=== PATIENT | male | born 1990 | race African-American/Black ===

== ENCOUNTER 2018-12-13 22:21 | Inpatient (IN) | payer MEDICARE, MEDICAID ==
[~2018-12-13] VITALS: Ht 180.3 cm; Wt 82.1 kg
[2018-12-14 00:40] VITALS: BP 109/51
--- NOTE | 2018-12-14 01:00 | NUR ---
NURSE NOTES: Received patient from [facility] via [facility] ([address], pharmaceutical detailer: Alon Miranda and Tae Todd) at 0015. Received report from MATHEW Cespedes at [place] [facility]. Patient A&Ox4. On room air, no signs of distress or labored breathing. IV intact, patent, and saline locked. Girlfriend at bedside. Belongings checked and recorded. Bed in lowest position with call light in reach. Will contact MD for orders and implement.
[2018-12-14] MEDS ORDERED: HYDROcodone/Acetamin 5/325 tab ORAL PRN (02:30)
[2018-12-14] MEDS ORDERED: Potassium Chloride 10 MEQ in D5 1/2NS 1,000 ML IV SCH (02:45)
[2018-12-14] MEDS: D5 1/2NS 1,000 ML IV SCH ×2 (03:35→16:50)
[2018-12-14] MEDS: Morphine Sulfate 2mg/ml Inj(IV/IM USE ONLY) IVP PRN ×4 (03:36→16:20)
[2018-12-14 04:00] VITALS: BP 110/60
[2018-12-14] MEDS: cefTRIAXone 1 GM in D5W 55 ML IVPB SCH (04:29)
[2018-12-14] MEDS ORDERED: GABAPENTIN600 MG ORAL (06:16)
[2018-12-14] MEDS ORDERED: BACLOFEN10 MG ORAL (06:16)
--- NOTE | 2018-12-14 07:18 | NUR ---
HAND-OFF: Report given to SIDRA RUIZ RN.
[2018-12-14 07:19] LABS: BASOPHILS % (AUTO) 0.8 % (0.0-2.0); EOSINOPHILS % (AUTO) 4.2 % (0.0-3.0); HEMATOCRIT 36.3 % (42.0-52.0); HEMOGLOBIN 12.4 G/DL (14.2-18.0); LYMPHOCYTES % (AUTO) 33.3 % (20.0-45.0); MEAN CORPUSCULAR VOLUME 92 FL (80-99); MONOCYTES % (AUTO) 11.7 % (1.0-10.0); PLATELET COUNT 143 K/UL (150-450); RED BLOOD COUNT 3.94 M/UL (4.70-6.10); RED CELL DISTRIBUTION WIDTH 11.3 % (11.6-14.8); WHITE BLOOD COUNT 5.8 K/UL (4.8-10.8)
[2018-12-14 08:00] VITALS: BP 100/44
[2018-12-14 08:11] LABS: ALANINE AMINOTRANSFERASE 21 U/L (12-78); ALBUMIN 3.2 G/DL (3.4-5.0); ALBUMIN/GLOBULIN RATIO 0.8 (1.0-2.7); ALKALINE PHOSPHATASE 58 U/L (46-116); ANION GAP 7 mmol/L (5-15); ASPARTATE AMINO TRANSFERASE 13 U/L (15-37); BILIRUBIN,TOTAL 0.2 MG/DL (0.2-1.0); BLOOD UREA NITROGEN 12 mg/dL (7-18); CALCIUM 8.1 MG/DL (8.5-10.1); CARBON DIOXIDE 28 MMOL/L (21-32); CHLORIDE 107 MMOL/L (98-107); CREATININE 0.8 MG/DL (0.55-1.30); PHOSPHORUS 3.3 MG/DL (2.5-4.9); POTASSIUM 3.8 MMOL/L (3.5-5.1); SODIUM 142 MMOL/L (136-145)
--- NOTE | 2018-12-14 09:30 | Consultation ---
History of Present Illness General Date patient seen: Dec 14, 2018 Present Illness HPI 28 year old male with PMHx of hip surgery and sciatica was taken by paramedics to [facility] with CC of swelling and redness of left eyes. A CT of head was done which was negative for any retro-orbital abscess. Pt is transferred for further evaluation Allergies: Coded Allergies: SULFA (SULFONAMIDE ANTIBIOTICS) (Verified Allergy, Unknown, 12/14/18) Medication History Scheduled Baclofen* (Baclofen*), 10 MG ORAL BID, (Reported) Gabapentin* (Gabapentin*), 600 MG ORAL BID, (Reported) Patient History Healthcare decision maker self Resuscitation status Full Code Advanced Directive on File Past Medical/Surgical History Past Medical/Surgical History: (1) Sciatica Review of Systems All Other Systems: negative except mentioned in HPI Physical Exam General Appearance: WD/WN Lines, tubes and drains: peripheral HEENT: normocephalic Neck: non-tender, normal alignment Respiratory/Chest: chest wall non-tender, lungs clear Cardiovascular/Chest: normal peripheral pulses, normal rate Abdomen: normal bowel sounds Last 24 Hour Vital Signs Date Time Temp Pulse Resp B/P (MAP) Pulse Ox O2 Delivery O2 Flow Rate FiO2 12/14/18 08:00 97.4 55 18 100/44 (62) 99 12/14/18 04:00 97.7 63 18 110/60 (77) 98 12/14/18 02:32 Room Air 12/14/18 00:40 97.2 54 18 109/51 (70) 100 Intake and Output 12/13/18 12/14/18 19:00 07:00 Output Total 300 ml Balance -300 ml Output Urine Total 300 ml # Voids 1 Laboratory Tests Test 12/14/18 05:45 White Blood Count 5.8 K/UL (4.8-10.8) Red Blood Count 3.94 M/UL (4.70-6.10) L Hemoglobin 12.4 G/DL (14.2-18.0) L Hematocrit 36.3 % (42.0-52.0) L Mean Corpuscular Volume 92 FL (80-99) Mean Corpuscular Hemoglobin 31.3 PG (27.0-31.0) H Mean Corpuscular Hemoglobin Concent 34.1 G/DL (32.0-36.0) Red Cell Distribution Width 11.3 % (11.6-14.8) L Platelet Count 143 K/UL (150-450) L Mean Platelet Volume 7.5 FL (6.5-10.1) Neutrophils (%) (Auto) 50.0 % (45.0-75.0) Lymphocytes (%) (Auto) 33.3 % (20.0-45.0) Monocytes (%) (Auto) 11.7 % (1.0-10.0) H Eosinophils (%) (Auto) 4.2 % (0.0-3.0) H Basophils (%) (Auto) 0.8 % (0.0-2.0) Sodium Level 142 MMOL/L (136-145) Potassium Level 3.8 MMOL/L (3.5-5.1) Chloride Level 107 MMOL/L (98-107) Carbon Dioxide Level 28 MMOL/L (21-32) Anion Gap 7 mmol/L (5-15) Blood Urea Nitrogen 12 mg/dL (7-18) Creatinine 0.8 MG/DL (0.55-1.30) Estimat Glomerular Filtration Rate > 60 mL/min (>60) Glucose Level 104 MG/DL (74-106) Calcium Level 8.1 MG/DL (8.5-10.1) L Phosphorus Level 3.3 MG/DL (2.5-4.9) Magnesium Level 2.0 MG/DL (1.8-2.4) Total Bilirubin 0.2 MG/DL (0.2-1.0) Aspartate Amino Transf (AST/SGOT) 13 U/L (15-37) L Alanine Aminotransferase (ALT/SGPT) 21 U/L (12-78) Alkaline Phosphatase 58 U/L (46-116) Total Protein 7.1 G/DL (6.4-8.2) Albumin 3.2 G/DL (3.4-5.0) L Globulin 3.9 g/dL Albumin/Globulin Ratio 0.8 (1.0-2.7) L Height (Feet): 5 Height (Inches): 11.00 Weight (Pounds): 181 Medications Current Medications Medications (Trade) Dose Ordered Sig/Delroy Route PRN Reason Start Time Stop Time Status Last Admin Dose Admin Acetaminophen (Tylenol) 650 mg Q6H PRN ORAL Mild Pain/Temp > 100.5 8/10/19 02:30 01/13/19 02:29 Acetaminophen/ Hydrocodone Bitart ([place] 5/325) 1 tab Q6H PRN ORAL Moderate Pain (Pain Scale 4-6) 12/14/18 02:30 12/21/18 02:29 Baclofen (Lioresal) 10 mg BID ORAL 12/14/18 09:00 01/13/19 08:59 Ceftriaxone Sodium 1 gm/ Dextrose 55 ml @ 110 mls/hr Q24H IVPB 12/14/18 04:00 12/21/18 03:59 12/14/18 04:29 Dextrose/Sodium Chloride 1,000 ml @ 75 mls/hr [id number] IV 12/14/18 03:30 01/13/19 03:29 12/14/18 03:35 Gabapentin (Neurontin) 600 mg BID ORAL 12/14/18 09:00 01/13/19 08:59 Morphine Sulfate (Morphine Sulfate) 2 mg Q4H PRN IVP Severe Pain (Pain Scale 7-10) 12/14/18 02:30 12/21/18 02:29 12/14/18 07:38 Ondansetron HCl (Zofran) 4 mg Q4H PRN IVP Nausea & Vomiting 12/14/18 02:30 01/13/19 02:29 12/14/18 07:58 Assessment/Plan Problem List: (1) Orbital cellulitis ICD Codes: H05.019 - Cellulitis of unspecified orbit SNOMED: [id number] Assessment/Plan: iv abx iv fluids ID consult check [email or web address], esr Felton Iniguez MD Dec 14, 2018 09:30
--- NOTE | 2018-12-14 11:43 | Consultation ---
History of Present Illness General Date patient seen: Dec 14, 2018 Present Illness HPI 28 y/o M with hx of hip surgery and sciatica is transferred from [facility] [place] [facility] [place] with swelling and redness of left eye. CT head negative for retro- orbital abscess. Allergies: Coded Allergies: SULFA (SULFONAMIDE ANTIBIOTICS) (Verified Allergy, Unknown, 12/14/18) Medication History Scheduled Baclofen* (Baclofen*), 10 MG ORAL BID, (Reported) Gabapentin* (Gabapentin*), 600 MG ORAL BID, (Reported) Patient History Healthcare decision maker self Resuscitation status Full Code Advanced Directive on File Patient History Narrative Pmhx: as above Shx: reviewed Fhx: non contributory Review of Systems All Other Systems: negative except mentioned in HPI Physical Exam Physical Exam Narrative General Appearance: WD/WN Lines, tubes and drains: peripheral HEENT: normocephalic Neck: non-tender, normal alignment Respiratory/Chest: chest wall non-tender, lungs clear Cardiovascular/Chest: normal peripheral pulses, normal rate Abdomen: normal bowel sounds Last 24 Hour Vital Signs Date Time Temp Pulse Resp B/P (MAP) Pulse Ox O2 Delivery O2 Flow Rate FiO2 12/14/18 09:00 Room Air 12/14/18 08:00 97.4 55 18 100/44 (62) 99 12/14/18 04:00 97.7 63 18 110/60 (77) 98 12/14/18 02:32 Room Air 12/14/18 00:40 97.2 54 18 109/51 (70) 100 Intake and Output 12/13/18 12/14/18 18:59 06:59 Output Total 300 ml Balance -300 ml Output Urine Total 300 ml # Voids 1 Laboratory Tests Test 12/14/18 05:45 White Blood Count 5.8 K/UL (4.8-10.8) Red Blood Count 3.94 M/UL (4.70-6.10) L Hemoglobin 12.4 G/DL (14.2-18.0) L Hematocrit 36.3 % (42.0-52.0) L Mean Corpuscular Volume 92 FL (80-99) Mean Corpuscular Hemoglobin 31.3 PG (27.0-31.0) H Mean Corpuscular Hemoglobin Concent 34.1 G/DL (32.0-36.0) Red Cell Distribution Width 11.3 % (11.6-14.8) L Platelet Count 143 K/UL (150-450) L Mean Platelet Volume 7.5 FL (6.5-10.1) Neutrophils (%) (Auto) 50.0 % (45.0-75.0) Lymphocytes (%) (Auto) 33.3 % (20.0-45.0) Monocytes (%) (Auto) 11.7 % (1.0-10.0) H Eosinophils (%) (Auto) 4.2 % (0.0-3.0) H Basophils (%) (Auto) 0.8 % (0.0-2.0) Sodium Level 142 MMOL/L (136-145) Potassium Level 3.8 MMOL/L (3.5-5.1) Chloride Level 107 MMOL/L (98-107) Carbon Dioxide Level 28 MMOL/L (21-32) Anion Gap 7 mmol/L (5-15) Blood Urea Nitrogen 12 mg/dL (7-18) Creatinine 0.8 MG/DL (0.55-1.30) Estimat Glomerular Filtration Rate > 60 mL/min (>60) Glucose Level 104 MG/DL (74-106) Calcium Level 8.1 MG/DL (8.5-10.1) L Phosphorus Level 3.3 MG/DL (2.5-4.9) Magnesium Level 2.0 MG/DL (1.8-2.4) Total Bilirubin 0.2 MG/DL (0.2-1.0) Aspartate Amino Transf (AST/SGOT) 13 U/L (15-37) L Alanine Aminotransferase (ALT/SGPT) 21 U/L (12-78) Alkaline Phosphatase 58 U/L (46-116) Total Protein 7.1 G/DL (6.4-8.2) Albumin 3.2 G/DL (3.4-5.0) L Globulin 3.9 g/dL Albumin/Globulin Ratio 0.8 (1.0-2.7) L Height (Feet): 5 Height (Inches): 11.00 Weight (Pounds): 181 Medications Current Medications Medications (Trade) Dose Ordered Sig/Delroy Route PRN Reason Start Time Stop Time Status Last Admin Dose Admin Acetaminophen (Tylenol) 650 mg Q6H PRN ORAL Mild Pain/Temp > 100.5 12/14/18 02:30 01/13/19 02:29 Acetaminophen/ Hydrocodone Bitart ([place] 5/325) 1 tab Q6H PRN ORAL Moderate Pain (Pain Scale 4-6) 12/14/18 02:30 12/21/18 02:29 Baclofen (Lioresal) 10 mg BID ORAL 12/14/18 09:00 01/13/19 08:59 12/14/18 09:23 Ceftriaxone Sodium 1 gm/ Dextrose 55 ml @ 110 mls/hr Q24H IVPB 12/14/18 04:00 12/21/18 03:59 12/14/18 04:29 Dextrose/Sodium Chloride 1,000 ml @ 75 mls/hr [id number] IV 12/14/18 03:30 01/13/19 03:29 12/14/18 03:35 Gabapentin (Neurontin) 600 mg BID ORAL 12/14/18 09:00 01/13/19 08:59 12/14/18 09:23 Morphine Sulfate (Morphine Sulfate) 2 mg Q4H PRN IVP Severe Pain (Pain Scale 7-10) 12/14/18 02:30 12/21/18 02:29 12/14/18 07:38 Ondansetron HCl (Zofran) 4 mg Q4H PRN IVP Nausea & Vomiting 12/14/18 02:30 01/13/19 02:29 12/14/18 07:58 Vancomycin HCl (Vanco rx to dose) 1 ea DAILY PRN MISC Per rx protocol 12/14/18 09:30 01/13/19 09:29 Vancomycin HCl/ Dextrose 275 ml @ 137.5 mls/ hr Q12HR@1100,2300 IVPB 12/14/18 11:00 12/19/18 10:59 Assessment/Plan Assessment/Plan: Abx: IV Vancomycin 12/14- Ceftriaxone 12/14- Assessment: L eye redness and swelling- likely lacrimal duct abscess w/ obstruction- will need ophthalmology evaluation Afebrile No leukocytosis Plan: -Continue empiric IV Vancomycin and Ceftriaxone #1 -may discharge tomorrow on PO Doxycycline 100mg bid and Augmentin 875/125mg PO Bid for 10 days if improvement and patient to be seen at his eye clinic on Sunday which he has seen in previous days. -f/u cx -Monitor CBC/CMP, temperatures -wound cx obtained Thank you for this consultation. Will continue to follow along with you. Discussed with RN, Dr Ibrahim and Beatriz Castaneda M.D. Dec 14, 2018 11:43
[2018-12-14 12:00] VITALS: BP 116/62
[2018-12-14] MEDS: Vancomycin 1.5gm Premix IVPB SCH ×2 (12:04→23:16)
--- NOTE | 2018-12-14 13:34 | NUR ---
NURSE NOTES: RN LEFT MESSAGE WITH DR CATHERINE REGARDING PT'S BRADYCARDIA. PULSE RANGE 41-65. PT DENIES SHORTNESS OF BREATH, BUT STATES HE FEELS WEAK. PT IS AXOX4, RESPONDS TO RN APPROPRIATELY. NOT LETHARGIC. CRN MADE AWARE. EDUCATED ON FALL/SAFETY PRECAUTIONS. CALL LIGHT WITHIN REACH.
[2018-12-14] MEDS ORDERED: Tubing IV Secondary IV ONE (14:57)
[2018-12-14] MEDS ORDERED: D5 1/2NS 1000ml IV ONE (14:57)
[2018-12-14 16:00] VITALS: BP 114/61
--- NOTE | 2018-12-14 18:23 | History & Physical ---
History and Physical History & Physicial Dictated for Int Med-Dr Ibrahim no. [id number] Travis De Luna MD Dec 14, 2018 18:23
[2018-12-14] MEDS ORDERED: Morphine Sulfate 2mg/ml Inj(IV/IM USE ONLY) IVP PRN (18:30)
--- NOTE | 2018-12-14 18:30 | NUR ---
NURSE NOTES: DR BURRELL WAS AT BEDSIDE AND MADE AWARE OF PT COMPLAINTS OF INCREASING PRESSURE/PAIN OF LEFT ORBITAL REGION. PER DR BURRELL, HE CALLED CONSULT FOR SENIOR POLICY ADVISOR DR FITCH.
--- NOTE | 2018-12-14 19:34 | NUR ---
HAND-OFF: Report given to Winter PUENTES RN.
--- NOTE | 2018-12-14 19:40 | NUR ---
NURSE NOTES: Received report from Jah Jean RN. Patient A&Ox4 on room air, no signs of distress or labored breathing. IV intact, patent, and running IV fluids. Patient complaining of pain. Bed in lowest position with call light in reach. Will continue with plan of care.
[2018-12-14 20:00] VITALS: BP 117/61
[2018-12-14] MEDS: Morphine Sulfate 4mg/ml Inj (IV USE ONLY) IVP PRN ×2 (20:36→23:59)
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
[2018-12-14] MEDS: Tobradex Opth Oint 3.5gm LEFT EYE SCH (23:02)
[2018-12-14] MEDS: Tobradex Opth Susp 2.5ml LEFT EYE SCH (23:02)
[2018-12-15] VITALS: BP 129/65
--- NOTE | 2018-12-15 01:45 | Consultation ---
DATE OF CONSULTATION: 12/14/2018 CONSULTING PHYSICIAN: Travis Stern M.D. REQUESTING PHYSICIAN: Steve Ibrahim M.D. REASON FOR CONSULTATION: This consultation is at the request of Steve Ibrahim M.D. for evaluation of cellulitis. HISTORY OF PRESENT ILLNESS: The patient is a very pleasant 28-year-old male, who approximately 3 days ago noticed swelling and tenderness over the left upper lid that progressively worsened. He went to [facility] and was also sent/transferred to [facility] for higher level of care. The patient notes that that has become very tender along the left upper lip, but there is no decrease in visual acuity and no pain on ocular movement. A CT scan of his head was negative for any retroorbital abscess per the EMR. PAST OCULAR HISTORY: None including no history of trauma or discharge. ALLERGIES: Sulfa. MEDICATIONS: Baclofen. PAST FAMILY OCULAR HISTORY: None. PAST MEDICAL HISTORY: "Bulging discs" in his back including L5-L1. PAST SURGICAL HISTORY: None. REVIEW OF SYSTEMS: A 12-point review of systems was otherwise negative. PHYSICAL EXAMINATION: Upon exam, his visual acuity at the bedside without glasses was in the right eye 20/20 and in the left eye 20/50 using a near card. The pupils were 4 to 3 OU without APD and the extraocular motility was intact bilaterally without pain or diplopia. The lids in the right eye were within normal limits, but in the left eye in the left upper lid, there was a firm palpable mass that was very tender along the left upper lid, extending from the nasal canthus superiorly going approximately 2.5 cm. There was an ulcerated lesion towards the nasal canthus in the left upper lid that had pus that was able to be expressed. It did not look like the canaliculus was involved as I pressed and visualized the area and I did not see any purulent discharge from the puncta. There was minimal tenderness in the nasal canthal area over the lacrimal sac. The conjunctiva and sclera was within normal limits bilaterally and the cornea was clear bilaterally. The anterior chamber was deep and quiet with no evidence of a hypopyon or hyphema bilaterally. The iris and lens were within normal limits bilaterally. ASSESSMENT/PLAN: 1. Preseptal cellulitis most probably secondary to a severe left upper lid abscess. 2. This is ulcerated in the nasal canthus and I was able to express some pus from that area. I tried to do an extensive examination of the left upper lid near the puncta, but it was difficult secondary to the soft tissue swelling, but I did not appreciate any purulent discharge from the puncta. He is currently taking IV ceftriaxone as well as IV vancomycin. These can be continued, but I would also add TobraDex eye ointment to the left upper eyelid as well as drops OS q.i.d. and the ointment also being q.i.d. He is also to use warm compresses as much as possible to try and consolidate this lesion. It is spread out at this time and to try and drain it would be very difficult as it has not come to reveal head except nasally. I will continue to monitor the patient while he is in-house and check for any cultures that have been done on the patient. Thank you very much for letting me participate in this very nice patient's care. If you have any questions, please do not hesitate to contact me. Travis Stern M.D. DR: MICHELE JOB#: [id number] CC:
[2018-12-15] MEDS: Morphine Sulfate 4mg/ml Inj (IV USE ONLY) IVP PRN ×7 (03:07→22:01)
[2018-12-15] MEDS: cefTRIAXone 1 GM in D5W 55 ML IVPB SCH (03:08)
[2018-12-15] MEDS: D5 1/2NS 1,000 ML IV SCH (04:29)
--- NOTE | 2018-12-15 07:45 | NUR ---
NURSE NOTES: PT AXOX4, CALM, RESTING IN BED. PT HAS CONSTANT PAIN OF LEFT ORBITAL REGION. PT EDUCATED ON PRN SCHEDULE OF MORPHINE 4MG. PT VERBALIZED UNDERSTANDING. CALL LIGHT WITHIN REACH. WILL CONTINUE TO MONITOR.
[2018-12-15 08:00] VITALS: BP 128/74
--- NOTE | 2018-12-15 08:07 | NUR ---
HAND-OFF: Report given to Jah Jean RN.
[2018-12-15 08:08] LABS: BASOPHILS % (AUTO) 1.2 % (0.0-2.0); EOSINOPHILS % (AUTO) 3.5 % (0.0-3.0); HEMATOCRIT 39.2 % (42.0-52.0); HEMOGLOBIN 13.4 G/DL (14.2-18.0); LYMPHOCYTES % (AUTO) 43.8 % (20.0-45.0); MEAN CORPUSCULAR VOLUME 92 FL (80-99); MONOCYTES % (AUTO) 9.2 % (1.0-10.0); NEUTROPHILS % (AUTO) 42.4 % (45.0-75.0); PLATELET COUNT 158 K/UL (150-450); RED BLOOD COUNT 4.25 M/UL (4.70-6.10); WHITE BLOOD COUNT 6.3 K/UL (4.8-10.8)
[2018-12-15 08:27] LABS: ALANINE AMINOTRANSFERASE 22 U/L (12-78); ALBUMIN 3.3 G/DL (3.4-5.0); ALBUMIN/GLOBULIN RATIO 0.8 (1.0-2.7); ALKALINE PHOSPHATASE 63 U/L (46-116); ANION GAP 5 mmol/L (5-15); ASPARTATE AMINO TRANSFERASE 14 U/L (15-37); BILIRUBIN,TOTAL 0.2 MG/DL (0.2-1.0); BLOOD UREA NITROGEN 6 mg/dL (7-18); CALCIUM 8.5 MG/DL (8.5-10.1); CARBON DIOXIDE 30 MMOL/L (21-32); CHLORIDE 107 MMOL/L (98-107); CREATININE 0.8 MG/DL (0.55-1.30); PHOSPHORUS 3.4 MG/DL (2.5-4.9); POTASSIUM 3.7 MMOL/L (3.5-5.1); SODIUM 142 MMOL/L (136-145)
[2018-12-15] MEDS: Tobradex Opth Susp 2.5ml LEFT EYE SCH ×4 (09:09→22:00)
[2018-12-15] MEDS: Tobradex Opth Oint 3.5gm LEFT EYE SCH ×4 (09:09→22:00)
--- NOTE | 2018-12-15 11:03 | NUR ---
CARDIOLOGY : ECHO REPORT Normal left ventricular chamber size, systolic function and wall motion . Left ventricular ejection fraction estimated to be 60-65 %. No evidence of left ventricular hypertrophy. No evidence of pericardial effusion. All other cardiac chamber sizes are within normal limits. Focal aortic valve sclerosis with adequate cusp excursion. Thickened mitral valve leaflets with normal excursion. Mitral annulus and aortic root calcification. Normal pulmonic valve structure. Normal tricuspid valve structure. IVC dilated at 3.0 cm without physiologic collapse suggestive of increased RA pressure. A color flow and spectral Doppler study was performed and revealed: No aortic insufficiency. Trace mitral regurgitation. Mitral inflow indicates normal left ventricular diastolic function. Trace tricuspid regurgitation. Tricuspid systolic velocities suggests peak right ventricular systolic pressure of 25 mmHg.
[2018-12-15] MEDS: Vancomycin 1.5gm Premix IVPB SCH ×2 (11:39→22:00)
[2018-12-15 12:00] VITALS: BP 126/76
[2018-12-15] MEDS ORDERED: D5 1/2NS 1000ml IV ONE (15:22)
--- NOTE | 2018-12-15 15:43 | Internal Med Progress Note ---
Subjective Date of Service: Dec 15, 2018 Physician Name Travis De Luna Attending Physician Steve Ibrahim MD Current Medications Medications (Trade) Dose Ordered Sig/Delroy Route PRN Reason Start Time Stop Time Status Last Admin Dose Admin Acetaminophen (Tylenol) 650 mg Q6H PRN ORAL Mild Pain/Temp > 100.5 12/14/18 02:30 01/13/19 02:29 Acetaminophen/ Hydrocodone Bitart ([place] 5/325) 1 tab Q6H PRN ORAL Moderate Pain (Pain Scale 4-6) 12/14/18 02:30 12/21/18 02:29 Baclofen (Lioresal) 10 mg BID ORAL 12/14/18 09:00 01/13/19 08:59 12/15/18 09:09 Ceftriaxone Sodium 1 gm/ Dextrose 55 ml @ 110 mls/hr Q24H IVPB 12/14/18 04:00 12/21/18 03:59 12/15/18 03:08 Gabapentin (Neurontin) 600 mg BID ORAL 12/14/18 09:00 01/13/19 08:59 12/15/18 09:09 Morphine Sulfate (Morphine Sulfate) 2 mg Q3H PRN IVP Moderate Pain (Pain Scale 4-6) 12/14/18 18:30 12/21/18 18:29 Morphine Sulfate (Morphine Sulfate) 4 mg Q3H PRN IVP Severe Pain (Pain Scale 7-10) 12/14/18 18:30 12/21/18 18:29 12/15/18 12:57 Ondansetron HCl (Zofran) 4 mg Q4H PRN IVP Nausea & Vomiting 12/14/18 02:30 01/13/19 02:29 12/15/18 06:38 Tobramycin/ Dexamethasone (Tobradex Opth Oint) 1 applic QID LEFT EYE 12/14/18 22:00 01/13/19 21:59 12/15/18 12:58 Tobramycin/ Dexamethasone (Tobradex Opth Susp) 1 drop QID LEFT EYE 12/14/18 22:00 01/13/19 21:59 12/15/18 12:57 Vancomycin HCl (Vanco rx to dose) 1 ea DAILY PRN MISC Per rx protocol 12/14/18 09:30 01/13/19 09:29 Vancomycin HCl/ Dextrose 275 ml @ 137.5 mls/ hr Q12HR@1100,2300 IVPB 12/14/18 11:00 12/19/18 10:59 12/15/18 11:39 Allergies: Coded Allergies: SULFA (SULFONAMIDE ANTIBIOTICS) (Verified Allergy, Unknown, 12/14/18) ROS Limited/Unobtainable: No Constitutional: Reports: no symptoms HEENT: Reports: eye pain, tearing Cardiovascular: Reports: no symptoms Respiratory: Reports: no symptoms Gastrointestinal/Abdominal: Reports: no symptoms Genitourinary: Reports: no symptoms Neurologic/Psychiatric: Reports: no symptoms Subjective 28 YO M admitted with erythema and swelling left periorbital region. Now left canaliculitis and periorbital cellulitis. Cover for Int [facility]-Dr Ibrahim Objective Last Vital Signs Date Time Temp Pulse Resp B/P (MAP) Pulse Ox O2 Delivery O2 Flow Rate FiO2 12/15/18 12:00 97.8 60 18 126/76 (93) 100 12/15/18 09:00 Room Air Laboratory Tests Test 12/15/18 06:00 White Blood Count 6.3 K/UL (4.8-10.8) Red Blood Count 4.25 M/UL (4.70-6.10) L Hemoglobin 13.4 G/DL (14.2-18.0) L Hematocrit 39.2 % (42.0-52.0) L Mean Corpuscular Volume 92 FL (80-99) Mean Corpuscular Hemoglobin 31.6 PG (27.0-31.0) H Mean Corpuscular Hemoglobin Concent 34.3 G/DL (32.0-36.0) Red Cell Distribution Width 11.0 % (11.6-14.8) L Platelet Count 158 K/UL (150-450) Mean Platelet Volume 7.7 FL (6.5-10.1) Neutrophils (%) (Auto) 42.4 % (45.0-75.0) L Lymphocytes (%) (Auto) 43.8 % (20.0-45.0) Monocytes (%) (Auto) 9.2 % (1.0-10.0) Eosinophils (%) (Auto) 3.5 % (0.0-3.0) H Basophils (%) (Auto) 1.2 % (0.0-2.0) Erythrocyte Sedimentation Rate 39 MM/HR (0-15) H Sodium Level 142 MMOL/L (136-145) Potassium Level 3.7 MMOL/L (3.5-5.1) Chloride Level 107 MMOL/L (98-107) Carbon Dioxide Level 30 MMOL/L (21-32) Anion Gap 5 mmol/L (5-15) Blood Urea Nitrogen 6 mg/dL (7-18) L Creatinine 0.8 MG/DL (0.55-1.30) Estimat Glomerular Filtration Rate > 60 mL/min (>60) Glucose Level 93 MG/DL (74-106) Calcium Level 8.5 MG/DL (8.5-10.1) Phosphorus Level 3.4 MG/DL (2.5-4.9) Magnesium Level 2.0 MG/DL (1.8-2.4) Total Bilirubin 0.2 MG/DL (0.2-1.0) Aspartate Amino Transf (AST/SGOT) 14 U/L (15-37) L Alanine Aminotransferase (ALT/SGPT) 22 U/L (12-78) Alkaline Phosphatase 63 U/L (46-116) C-Reactive Protein, Quantitative 1.4 mg/dL (0.00-0.90) H Total Protein 7.7 G/DL (6.4-8.2) Albumin 3.3 G/DL (3.4-5.0) L Globulin 4.4 g/dL Albumin/Globulin Ratio 0.8 (1.0-2.7) L Microbiology Date/Time Source Procedure Growth Status 12/14/18 13:00 Eye Left Gram Stain - Final Resulted 12/14/18 13:00 Eye Left Wound Culture - Preliminary NO GROWTH Resulted Intake and Output 12/14/18 12/15/18 18:59 06:59 Intake Total 1500.0 ml 75 ml Balance 1500.0 ml 75 ml Intake IV Total 1000.0 ml 75 ml Other 500 ml # Voids 8 Objective HYSICAL EXAMINATION: GENERAL: The patient is a well-developed and well-nourished white male, in no apparent distress. HEENT: Left eye is swollen and shut compared to the right. There is erythema surrounding the entire periorbital region of the left eye approximately 15 cm in diameter. There is a purulent discharge. CHEST: Lungs are clear to auscultation bilaterally without wheezes or rales. CARDIOVASCULAR: Regular rhythm and rate. S1 and S2 are normal without murmurs, rubs, or gallops. ABDOMEN: Soft, nontender, and nondistended. Positive bowel sounds. No evidence of hepatosplenomegaly. Currently, no rebound or guarding noted. EXTREMITIES: Negative for clubbing, cyanosis, or edema. RECTAL/GENITAL: Refused. NEUROLOGIC: Cranial nerves II through XII are grossly intact without focal deficits. Motor strength is 5/5 bilaterally. Deep tendon reflexes are 2+ plantar. Assessment/Plan Assessment/Plan ASSESSMENT: This is a 28-year-old white male. 1. Left lacrimal canaliculitis. 2. Left orbital cellulitis. 3. Herniated nucleus pulposus of the lumbar spine. TREATMENT: 1. Left lacrimal canaliculitis/left orbital cellulitis. An Infectious Disease consultation has been obtained with Dr. Zelaya. An Ophthalmology consultation has been obtained with Dr. Stern. The patient has been started empirically on vancomycin and ceftriaxone. Add tobridex oint and drops per ophthalmology 2. HNP of the lumbar spine. Travis De Luna MD Dec 15, 2018 15:43
[2018-12-15 16:00] VITALS: BP 121/82
--- NOTE | 2018-12-15 17:00 | NUR ---
NURSE NOTES: HOT COMPRESSES GIVEN TO PT. DR ABEL AT BEDSIDE AND ORDER FOR NEW WOUND CULTURE OF LEFT EYE.
--- NOTE | 2018-12-15 19:00 | Progress Note ---
DATE: 12/15/2018 HISTORY OF PRESENT ILLNESS: The patient is a very pleasant 28-year-old male who has a preseptal cellulitis of the left upper lid. Today, the patient notes that the left upper lid is feeling better since he has been using the warm compresses. He feels he is able to open his eyelids more and his vision is better out of the left eye. There is no photophobia and minimal tearing discharge OS. Upon exam, his visual acuity in the right eye was 20/20 and in the left eye 20/25 (using a near card) without glasses. The extraocular motility was intact bilaterally without pain or diplopia. Upon exam, the lids of the right eye were within normal limits and in the left eye, there was a decrease in the size of the firm, tender lesion in the left upper eyelid. It seems to be more consolidated towards the center of it. At this time, it probably measures approximately 1.5 to 2 cm. There is still tenderness in the area. He is able to open his lids more on command though. There was no punctal discharge that I was able to see from the right upper lid or left lower lid. The conjunctiva and sclera were within normal limits bilaterally and the cornea clear. The anterior chamber was deep and quiet OU. ASSESSMENT/PLAN: 1. Resolving preseptal cellulitis, left upper eyelid. 2. This has improved since last night and cultures were done again today even though they did come out as the preliminary result as negative. He is starting to have TobraDex drops applied to the left eye and I instructed the nurse on how to apply the ointment to the left upper eyelid. I would continue warm compresses as much as possible and at least every hour and continue the drops and ointment. Upon discharge, he is to follow up in my office for further evaluation. I will continue to follow him while he is in-house. Travis Stern M.D. DR: Adan JOB#: [id number] CC:
--- NOTE | 2018-12-15 19:38 | NUR ---
HAND-OFF: Report given to Morelia CONNER RN.
--- NOTE | 2018-12-15 19:46 | Pulmonology Progress Note ---
Assessment/Plan Problems: (1) Orbital cellulitis Subjective Allergies: Coded Allergies: SULFA (SULFONAMIDE ANTIBIOTICS) (Verified Allergy, Unknown, 12/14/18) Objective Last 24 Hour Vital Signs Date Time Temp Pulse Resp B/P (MAP) Pulse Ox O2 Delivery O2 Flow Rate FiO2 12/15/18 16:00 97.7 69 17 121/82 (95) 97 12/15/18 12:00 97.8 60 18 126/76 (93) 100 12/15/18 09:00 Room Air 12/15/18 08:00 98.2 52 18 128/74 (92) 99 12/15/18 00:00 98.2 67 16 129/65 (86) 95 12/14/18 21:00 Room Air 12/14/18 20:00 97.8 51 16 117/61 (79) 98 Intake and Output 12/14/18 12/15/18 18:59 06:59 Intake Total 1500.0 ml 75 ml Balance 1500.0 ml 75 ml Intake IV Total 1000.0 ml 75 ml Other 500 ml # Voids 8 Microbiology Date/Time Source Procedure Growth Status 12/14/18 13:00 Eye Left Gram Stain - Final Resulted 12/14/18 13:00 Eye Left Wound Culture - Preliminary NO GROWTH Resulted Laboratory Tests 12/15/18 06:00: White Blood Count 6.3, Red Blood Count 4.25L, Hemoglobin 13.4L, Hematocrit 39.2L , Mean Corpuscular Volume 92, Mean Corpuscular Hemoglobin 31.6H, Mean Corpuscular Hemoglobin Concent 34.3, Red Cell Distribution Width 11.0L, Platelet Count 158, Mean Platelet Volume 7.7, Neutrophils (%) (Auto) 42.4L, Lymphocytes (%) (Auto) 43.8, Monocytes (%) (Auto) 9.2, Eosinophils (%) (Auto) 3.5H, Basophils (%) (Auto) 1.2, Erythrocyte Sedimentation Rate 39H, Sodium Level 142, Potassium Level 3.7, Chloride Level 107, Carbon Dioxide Level 30, Anion Gap 5, Blood Urea Nitrogen 6L, Creatinine 0.8, Estimat Glomerular Filtration Rate > 60, Glucose Level 93, Calcium Level 8.5, Phosphorus Level 3.4 , Magnesium Level 2.0, Total Bilirubin 0.2, Aspartate Amino Transf (AST/SGOT) 14L, Alanine Aminotransferase (ALT/SGPT) 22, Alkaline Phosphatase 63, C- Reactive Protein, Quantitative 1.4H, Total Protein 7.7, Albumin 3.3L, Globulin 4.4, Albumin/Globulin Ratio 0.8L Current Medications Medications (Trade) Dose Ordered Sig/Delroy Route PRN Reason Start Time Stop Time Status Last Admin Dose Admin Acetaminophen (Tylenol) 650 mg Q6H PRN ORAL Mild Pain/Temp > 100.5 12/14/18 02:30 01/13/19 02:29 Acetaminophen/ Hydrocodone Bitart ([place] 5/325) 1 tab Q6H PRN ORAL Moderate Pain (Pain Scale 4-6) 12/14/18 02:30 12/21/18 02:29 Baclofen (Lioresal) 10 mg BID ORAL 12/14/18 09:00 01/13/19 08:59 12/15/18 17:38 Ceftriaxone Sodium 1 gm/ Dextrose 55 ml @ 110 mls/hr Q24H IVPB 12/14/18 04:00 12/21/18 03:59 12/15/18 03:08 Gabapentin (Neurontin) 600 mg BID ORAL 12/14/18 09:00 01/13/19 08:59 12/15/18 17:38 Morphine Sulfate (Morphine Sulfate) 2 mg Q3H PRN IVP Moderate Pain (Pain Scale 4-6) 12/14/18 18:30 12/21/18 18:29 Morphine Sulfate (Morphine Sulfate) 4 mg Q3H PRN IVP Severe Pain (Pain Scale 7-10) 12/14/18 18:30 12/21/18 18:29 12/15/18 18:59 Ondansetron HCl (Zofran) 4 mg Q4H PRN IVP Nausea & Vomiting 12/14/18 02:30 01/13/19 02:29 12/15/18 16:05 Tobramycin/ Dexamethasone (Tobradex Opth Oint) 1 applic QID LEFT EYE 12/14/18 22:00 01/13/19 21:59 12/15/18 17:38 Tobramycin/ Dexamethasone (Tobradex Opth Susp) 1 drop QID LEFT EYE 12/14/18 22:00 01/13/19 21:59 12/15/18 17:38 Vancomycin HCl (Vanco rx to dose) 1 ea DAILY PRN MISC Per rx protocol 12/14/18 09:30 01/13/19 09:29 Vancomycin HCl/ Dextrose 275 ml @ 137.5 mls/ hr Q12HR@1100,2300 IVPB 12/14/18 11:00 12/19/18 10:59 12/15/18 11:39 Felton Iniguez MD Dec 15, 2018 19:45
[2018-12-15 20:00] VITALS: BP 121/79
--- NOTE | 2018-12-15 21:45 | NUR ---
NURSE NOTES: Pt is in bed, awake and alert. No acute distress noted. Vitas stable. Warm compress provided for left eye. Pt is on ABX. Pain medication given as ordered PRN. Bed locked low in position,side rails up and call light within reach. Pt has his girlfriend by bedside.
[2018-12-15] MEDS: Vancomycin 1.25gm Premix q24h IVPB SCH (23:44)
[2018-12-16] MEDS: Morphine Sulfate 4mg/ml Inj (IV USE ONLY) IVP PRN ×5 (01:02→14:42)
[2018-12-16 04:00] VITALS: BP 130/64
[2018-12-16] MEDS: cefTRIAXone 1 GM in D5W 55 ML IVPB SCH (04:28)
--- NOTE | 2018-12-16 05:24 | NUR ---
NURSE NOTES: Pt is in bed, asleep. Swelling on the left has gone down a little bit.
[2018-12-16] MEDS: Vancomycin 1.25gm Premix q24h IVPB SCH ×2 (06:34→14:57)
--- NOTE | 2018-12-16 07:05 | NUR ---
HAND-OFF: Report given to Chino Rangel RN.
[2018-12-16 07:45] VITALS: BP 140/64
[2018-12-16] MEDS: Tobradex Opth Susp 2.5ml LEFT EYE SCH ×2 (09:00→12:57)
[2018-12-16] MEDS: Tobradex Opth Oint 3.5gm LEFT EYE SCH ×2 (09:00→12:57)
--- NOTE | 2018-12-16 10:14 | NUR ---
NURSE NOTES: pt awake alert, no distress. no sob. call light within reach. bed in lowest position, locked. will monitor.
--- NOTE | 2018-12-16 10:18 | NUR ---
NURSE NOTES: Received left eye abscess culture results from [facility]; shows MRSA + . Dr. Zelaya notified.
[2018-12-16 12:00] VITALS: BP 130/64
--- NOTE | 2018-12-16 13:45 | Pulmonology Progress Note ---
Assessment/Plan Problems: (1) Orbital cellulitis Assessment/Plan MRSA iV abx seen by ophthalmology dc home when cleared by ID Subjective ROS Limited/Unobtainable: No Constitutional: Reports: no symptoms HEENT: Repors: no symptoms Respiratory: Reports: no symptoms Allergies: Coded Allergies: SULFA (SULFONAMIDE ANTIBIOTICS) (Verified Allergy, Unknown, 12/14/18) Objective Last 24 Hour Vital Signs Date Time Temp Pulse Resp B/P (MAP) Pulse Ox O2 Delivery O2 Flow Rate FiO2 12/16/18 12:06 98.8 12/16/18 07:46 Room Air 12/16/18 07:45 98.8 64 16 140/64 (89) 99 54 12/16/18 04:00 98.8 69 16 130/64 (86) 99 64 12/15/18 21:00 Room Air 12/15/18 20:00 98.2 69 16 121/79 (93) 99 56 12/15/18 16:00 97.7 69 17 121/82 (95) 97 Intake and Output 12/15/18 12/16/18 19:00 07:00 Intake Total 1025.0 ml 790.00 ml Balance 1025.0 ml 790.00 ml Intake Oral 460 ml IV Total 425.0 ml 330.00 ml Other 600 ml # Voids 2 General Appearance: WD/WN HEENT: normocephalic, PERRL Respiratory/Chest: chest wall non-tender, normal breath sounds Cardiovascular: normal peripheral pulses, regular rhythm Abdomen: normal bowel sounds, soft, non tender, no scars Extremities: no cyanosis Skin: no rash Microbiology Date/Time Source Procedure Growth Status 12/15/18 13:30 Eye Left Gram Stain Pending Resulted 12/15/18 13:30 Eye Left Wound Culture - Preliminary NO GROWTH AFTER 24 HOURS Resulted 12/14/18 13:00 Eye Left Gram Stain - Final Resulted 12/14/18 13:00 Wound Culture - Preliminary Staphylococcus Aureus Resulted Laboratory Tests 12/15/18 21:45: Vancomycin Level Trough 12.2H Current Medications Medications (Trade) Dose Ordered Sig/Delroy Route PRN Reason Start Time Stop Time Status Last Admin Dose Admin Acetaminophen (Tylenol) 650 mg Q6H PRN ORAL Mild Pain/Temp > 100.5 12/14/18 02:30 01/13/19 02:29 Acetaminophen/ Hydrocodone Bitart ([place] 5/325) 1 tab Q6H PRN ORAL Moderate Pain (Pain Scale 4-6) 12/14/18 02:30 12/21/18 02:29 Baclofen (Lioresal) 10 mg BID ORAL 12/14/18 09:00 01/13/19 08:59 12/16/18 08:05 Ceftriaxone Sodium 1 gm/ Dextrose 55 ml @ 110 mls/hr Q24H IVPB 12/14/18 04:00 12/21/18 03:59 12/16/18 04:28 Gabapentin (Neurontin) 600 mg BID ORAL 12/14/18 09:00 01/13/19 08:59 12/16/18 08:05 Morphine Sulfate (Morphine Sulfate) 2 mg Q3H PRN IVP Moderate Pain (Pain Scale 4-6) 12/14/18 18:30 12/21/18 18:29 Morphine Sulfate (Morphine Sulfate) 4 mg Q3H PRN IVP Severe Pain (Pain Scale 7-10) 12/14/18 18:30 12/21/18 18:29 12/16/18 11:36 Ondansetron HCl (Zofran) 4 mg Q4H PRN IVP Nausea & Vomiting 12/14/18 02:30 01/13/19 02:29 12/16/18 11:36 Tobramycin/ Dexamethasone (Tobradex Opth Oint) 1 applic QID LEFT EYE 12/14/18 22:00 01/13/19 21:59 12/16/18 12:57 Tobramycin/ Dexamethasone (Tobradex Opth Susp) 1 drop QID LEFT EYE 12/14/18 22:00 01/13/19 21:59 12/16/18 12:57 Vancomycin HCl (Vanco rx to dose) 1 ea DAILY PRN MISC Per rx protocol 12/14/18 09:30 01/13/19 09:29 Vancomycin HCl/ Dextrose 275 ml @ 183.333 mls/hr Q8H IVPB 12/15/18 23:00 12/20/18 22:59 12/16/18 06:34 Felton Iniguez MD Dec 16, 2018 13:45
--- NOTE | 2018-12-16 13:48 | Internal Med Progress Note ---
Subjective Date of Service: Dec 16, 2018 Physician Name Travis De Luna Attending Physician Steve Ibrahim MD Current Medications Medications (Trade) Dose Ordered Sig/Delroy Route PRN Reason Start Time Stop Time Status Last Admin Dose Admin Acetaminophen (Tylenol) 650 mg Q6H PRN ORAL Mild Pain/Temp > 100.5 12/14/18 02:30 01/13/19 02:29 Acetaminophen/ Hydrocodone Bitart ([place] 5/325) 1 tab Q6H PRN ORAL Moderate Pain (Pain Scale 4-6) 12/14/18 02:30 12/21/18 02:29 Baclofen (Lioresal) 10 mg BID ORAL 12/14/18 09:00 01/13/19 08:59 12/16/18 08:05 Ceftriaxone Sodium 1 gm/ Dextrose 55 ml @ 110 mls/hr Q24H IVPB 12/14/18 04:00 12/21/18 03:59 12/16/18 04:28 Gabapentin (Neurontin) 600 mg BID ORAL 12/14/18 09:00 01/13/19 08:59 12/16/18 08:05 Morphine Sulfate (Morphine Sulfate) 2 mg Q3H PRN IVP Moderate Pain (Pain Scale 4-6) 12/14/18 18:30 12/21/18 18:29 Morphine Sulfate (Morphine Sulfate) 4 mg Q3H PRN IVP Severe Pain (Pain Scale 7-10) 12/14/18 18:30 12/21/18 18:29 12/16/18 11:36 Ondansetron HCl (Zofran) 4 mg Q4H PRN IVP Nausea & Vomiting 12/14/18 02:30 01/13/19 02:29 12/16/18 11:36 Tobramycin/ Dexamethasone (Tobradex Opth Oint) 1 applic QID LEFT EYE 12/14/18 22:00 01/13/19 21:59 12/16/18 12:57 Tobramycin/ Dexamethasone (Tobradex Opth Susp) 1 drop QID LEFT EYE 12/14/18 22:00 01/13/19 21:59 12/16/18 12:57 Vancomycin HCl (Vanco rx to dose) 1 ea DAILY PRN MISC Per rx protocol 12/14/18 09:30 01/13/19 09:29 Vancomycin HCl/ Dextrose 275 ml @ 183.333 mls/hr Q8H IVPB 12/15/18 23:00 12/20/18 22:59 12/16/18 06:34 Allergies: Coded Allergies: SULFA (SULFONAMIDE ANTIBIOTICS) (Verified Allergy, Unknown, 12/14/18) ROS Limited/Unobtainable: No Constitutional: Reports: no symptoms HEENT: Reports: eye pain Cardiovascular: Reports: no symptoms Respiratory: Reports: no symptoms Gastrointestinal/Abdominal: Reports: no symptoms Genitourinary: Reports: no symptoms Neurologic/Psychiatric: Reports: no symptoms Subjective 28 YO M admitted with erythema and swelling left periorbital region. Now left canaliculitis and periorbital cellulitis. Cover for Int Med-Dr Ibrahim Objective Last Vital Signs Date Time Temp Pulse Resp B/P (MAP) Pulse Ox O2 Delivery O2 Flow Rate FiO2 12/16/18 12:06 98.8 12/16/18 07:46 Room Air 12/16/18 07:45 64 16 140/64 (89) 99 54 Laboratory Tests Test 12/15/18 21:45 Vancomycin Level Trough 12.2 ug/mL (5.0-12.0) H Microbiology Date/Time Source Procedure Growth Status 12/15/18 13:30 Eye Left Gram Stain - Final Resulted 12/15/18 13:30 Eye Left Wound Culture - Preliminary NO GROWTH AFTER 24 HOURS Resulted 12/14/18 13:00 Eye Left Gram Stain - Final Resulted 12/14/18 13:00 Wound Culture - Preliminary Staphylococcus Aureus Resulted Intake and Output 12/15/18 12/16/18 19:00 07:00 Intake Total 1025.0 ml 790.00 ml Balance 1025.0 ml 790.00 ml Intake Oral 460 ml IV Total 425.0 ml 330.00 ml Other 600 ml # Voids 2 Objective HYSICAL EXAMINATION: GENERAL: The patient is a well-developed and well-nourished white male, in no apparent distress. HEENT: Left eye is swollen and shut compared to the right. There is erythema surrounding the entire periorbital region of the left eye approximately 15 cm in diameter. There is a purulent discharge. CHEST: Lungs are clear to auscultation bilaterally without wheezes or rales. CARDIOVASCULAR: Regular rhythm and rate. S1 and S2 are normal without murmurs, rubs, or gallops. ABDOMEN: Soft, nontender, and nondistended. Positive bowel sounds. No evidence of hepatosplenomegaly. Currently, no rebound or guarding noted. EXTREMITIES: Negative for clubbing, cyanosis, or edema. RECTAL/GENITAL: Refused. NEUROLOGIC: Cranial nerves II through XII are grossly intact without focal deficits. Motor strength is 5/5 bilaterally. Deep tendon reflexes are 2+ plantar. Assessment/Plan Assessment/Plan ASSESSMENT: This is a 28-year-old white male. 1. Left lacrimal canaliculitis. 2. Left orbital cellulitis. 3. Herniated nucleus pulposus of the lumbar spine. TREATMENT: 1. Left lacrimal canaliculitis/left orbital cellulitis. An Infectious Disease consultation has been obtained with Dr. Zelaya. An Ophthalmology consultation has been obtained with Dr. Stern. The patient has been started empirically on vancomycin and ceftriaxone. Add tobridex oint and drops per ophthalmology 2. HNP of the lumbar spine. Travis De Luna MD Dec 16, 2018 13:48
--- NOTE | 2018-12-16 13:51 | Infectious Diseases Prog Note ---
Assessment/Plan Assessment/Plan Abx: IV Vancomycin 12/14- Ceftriaxone 12/14- Assessment: L eye redness and swelling- Preseptal cellulitis; improving -wound cx S. aureus Afebrile No leukocytosis Plan: -Continue empiric IV Vancomycin and Ceftriaxone #3/ -ok to discharge PO Doxycycline 100mg bid and Augmentin 875/125mg PO Bid -f/u cx -Monitor CBC/CMP, temperatures -f/u with ophthalmology upon dicharge Thank you for this consultation. Will continue to follow along with you. Discussed with RN, Dr Ibrahmi and Geetha Subjective Allergies: Coded Allergies: SULFA (SULFONAMIDE ANTIBIOTICS) (Verified Allergy, Unknown, 12/14/18) Subjective afebrile seen by opthalomology Objective Vital Signs Last 24 Hour Vital Signs Date Time Temp Pulse Resp B/P (MAP) Pulse Ox O2 Delivery O2 Flow Rate FiO2 12/16/18 12:06 98.8 12/16/18 07:46 Room Air 12/16/18 07:45 98.8 64 16 140/64 (89) 99 54 12/16/18 04:00 98.8 69 16 130/64 (86) 99 64 12/15/18 21:00 Room Air 12/15/18 20:00 98.2 69 16 121/79 (93) 99 56 12/15/18 16:00 97.7 69 17 121/82 (95) 97 Height (Feet): 5 Height (Inches): 11.00 Weight (Pounds): 181 Objective General Appearance: WD/WN Lines, tubes and drains: peripheral HEENT: normocephalic Neck: non-tender, normal alignment Respiratory/Chest: chest wall non-tender, lungs clear Cardiovascular/Chest: normal peripheral pulses, normal rate Abdomen: normal bowel sounds Microbiology Date/Time Source Procedure Growth Status 12/15/18 13:30 Eye Left Gram Stain - Final Resulted 12/15/18 13:30 Eye Left Wound Culture - Preliminary NO GROWTH AFTER 24 HOURS Resulted 12/14/18 13:00 Eye Left Gram Stain - Final Resulted 12/14/18 13:00 Wound Culture - Preliminary Staphylococcus Aureus Resulted Laboratory Tests Test 12/15/18 21:45 Vancomycin Level Trough 12.2 ug/mL (5.0-12.0) H Current Medications Medications (Trade) Dose Ordered Sig/Delroy Route PRN Reason Start Time Stop Time Status Last Admin Dose Admin Acetaminophen (Tylenol) 650 mg Q6H PRN ORAL Mild Pain/Temp > 100.5 12/14/18 02:30 01/13/19 02:29 Acetaminophen/ Hydrocodone Bitart ([place] 5/325) 1 tab Q6H PRN ORAL Moderate Pain (Pain Scale 4-6) 12/14/18 02:30 12/21/18 02:29 Baclofen (Lioresal) 10 mg BID ORAL 12/14/18 09:00 01/13/19 08:59 12/16/18 08:05 Ceftriaxone Sodium 1 gm/ Dextrose 55 ml @ 110 mls/hr Q24H IVPB 12/14/18 04:00 12/21/18 03:59 12/16/18 04:28 Gabapentin (Neurontin) 600 mg BID ORAL 12/14/18 09:00 01/13/19 08:59 12/16/18 08:05 Morphine Sulfate (Morphine Sulfate) 2 mg Q3H PRN IVP Moderate Pain (Pain Scale 4-6) 12/14/18 18:30 12/21/18 18:29 Morphine Sulfate (Morphine Sulfate) 4 mg Q3H PRN IVP Severe Pain (Pain Scale 7-10) 12/14/18 18:30 12/21/18 18:29 12/16/18 11:36 Ondansetron HCl (Zofran) 4 mg Q4H PRN IVP Nausea & Vomiting 12/14/18 02:30 01/13/19 02:29 12/16/18 11:36 Tobramycin/ Dexamethasone (Tobradex Opth Oint) 1 applic QID LEFT EYE 12/14/18 22:00 01/13/19 21:59 12/16/18 12:57 Tobramycin/ Dexamethasone (Tobradex Opth Susp) 1 drop QID LEFT EYE 12/14/18 22:00 01/13/19 21:59 12/16/18 12:57 Vancomycin HCl (Vanco rx to dose) 1 ea DAILY PRN MISC Per rx protocol 12/14/18 09:30 01/13/19 09:29 Vancomycin HCl/ Dextrose 275 ml @ 183.333 mls/hr Q8H IVPB 12/15/18 23:00 12/20/18 22:59 12/16/18 06:34 Beatriz Zelaya M.D. Dec 16, 2018 13:51
[2018-12-16] MEDS ORDERED: DOXYCYCLINE MO100 M2 PO (14:31)
[2018-12-16] MEDS ORDERED: AUGMENTIN 875-1 EAC1 ORAL (14:32)
--- NOTE | 2018-12-16 15:15 | NUR ---
NURSE NOTES: pt left in stable condition, w all belongings, iv removed, no c/o pain. [place] [facility] [place]receiving associate of abx, copy of rx in the chart, original given to patient.
--- NOTE | 2018-12-17 10:25 | Cardiology Report ---
APPROVED REPORT EXAM: Two-dimensional and M-mode echocardiogram with Doppler and color Doppler. INDICATION BRADYCARDIA M-Mode DIMENSIONS IVSd1.4 (0.7-1.1cm)Left Atrium (MM)3.3 (1.6-4.0cm) LVDd4.2 (3.5-5.6cm)Aortic Root3.1 (2.0-3.7cm) PWd1.2 (0.7-1.1cm)Aortic Cusp Exc.2.2 (1.5-2.0cm) IVSs2.0 cm LVDs2.8 (2.5-4.0cm) PWs1.5 cm Normal left ventricular chamber size, systolic function and wall motion . Left ventricular ejection fraction estimated to be 60-65 %. No evidence of left ventricular hypertrophy. No evidence of pericardial effusion. All other cardiac chamber sizes are within normal limits. Focal aortic valve sclerosis with adequate cusp excursion. Thickened mitral valve leaflets with normal excursion. Mitral annulus and aortic root calcification. Normal pulmonic valve structure. Normal tricuspid valve structure. IVC dilated at 3.0 cm without physiologic collapse suggestive of increased RA pressure. A color flow and spectral Doppler study was performed and revealed: No aortic insufficiency. Trace mitral regurgitation. Mitral inflow indicates normal left ventricular diastolic function. Trace tricuspid regurgitation. Tricuspid systolic velocities suggests peak right ventricular systolic pressure of 25 mmHg.
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
== END 2018-12-16 15:30 | disposition home or self-care (01) | DRG 121 ==
LOC: 4E 12-14 00:05
DX: H04.332 Acute lacrimal canaliculitis of left lacrimal passage (principal); L03.213 Periorbital cellulitis; H00.034 Abscess of left upper eyelid; M51.26 Other intervertebral disc displacement, lumbar region; Z88.2 Allergy status to sulfonamides; T26.3 Burns of other specified parts of eye and adnexa; M54.30 Sciatica, unspecified side
CPT/HCPCS: 36415; 80053; 80202; 83735; 84100; 85025; 85651; 86140; 87070; 87181; 87205; 93306; J2405